=== PATIENT | female | born 1945 | race Caucasian/White ===

== ENCOUNTER 2024-01-30 07:08 | Day surgery (SDC) | payer OTHER ==
[2024-01-24 16:46] VITALS: BMI 18.6
[2024-01-30] MEDS ORDERED: CARBACHOL 0.01% INTRA-OCULAR 1.5 ML VIAL ONE (07:14)
[2024-01-30] MEDS ORDERED: LIDOCAINE 1% P/F 10 MG/ML VIAL ONE (07:14)
[2024-01-30] MEDS ORDERED: CIPROFLOXACIN 0.3% EYE DROPS 5 ML BOTTLE ONE (07:14)
[2024-01-30] MEDS ORDERED: NEO/POLYMYX B SULF/DEXAMETH OPHTHALMIC 5ML BOTTLE ONE (07:14)
[2024-01-30] MEDS ORDERED: BSS (NA/CA/MG/K) BALANCED SALT SOLUTION OPHTH SOLN 15 ML BOTTLE ONE (07:14)
[2024-01-30] MEDS ORDERED: TETRACAINE 0.5% OPHTH SOLN 2 ML BOTTLE ONE (07:14)
[2024-01-30] MEDS ORDERED: EPINEPHrine/PF 1 MG/1 ML (1:1,000) AMPULE ONE (07:14)
[2024-01-30] MEDS: PHENYLEPHRINE 2.5% OPTHALMIC DROP 2ML BOTTLE ONE (08:00)
[2024-01-30] MEDS: CYCLOPENTOLATE 2% OPHTH SOLN 2 ML BOTTLE ONE (08:00)
[2024-01-30] MEDS: TROPICAMIDE 1% OPHTH SOLN 15 ML BOTTLE ONE (08:00)
[2024-01-30] MEDS: TOBRAMYCIN 0.3% OPHTH SOLN 5 ML BOTTLE OD SCH (08:00)
[2024-01-30] MEDS ORDERED: TOBRAMYCIN 0.3% OPHTH SOLN 5 ML BOTTLE ONE (08:05)
[2024-01-30 08:06] VITALS: RESP 16
[2024-01-30] MEDS ORDERED: ACETAMINOPHEN 500 MG TABLET (FP) PO ONE (08:51)
[2024-01-30] MEDS ORDERED: MIDAZOLAM HCL 2 MG/2 ML SINGLE DOSE VIAL ONE (08:56)
[2024-01-30 09:38] VITALS: BP 113/50; PULSE 63; TEMP 97.7
== END 2024-01-30 10:16 | disposition home or self-care (01) ==
LOC: FASU 07:08
PROVIDERS: ATTEND Ophthalmology
PROC: 08RJ3JZ Replacement of Right Lens with Synthetic Substitute, Percutaneous Approach (ICD-10-PCS; principal; 2024-01-30 09:03)
DX: H26.8 Other specified cataract (principal)
CPT/HCPCS: 66984; V2632